=== PATIENT | male | born 1955 | race Caucasian/White ===

== ENCOUNTER 2019-10-09 11:10 | Outpatient (CLI) | payer MEDICARE ==
[2019-10-09] MEDS ORDERED: ATOR10TA9 PO (12:03)
[2019-10-09] MEDS ORDERED: LISI-170 PO (12:03)
[2019-10-09] MEDS ORDERED: CARV3.1212 PO (12:03)
[2019-10-09] MEDS ORDERED: ASPI-496 PO (12:09)
[2019-10-09] MEDS ORDERED: MULT-658 PO (12:10)
[2019-10-09] MEDS ORDERED: BEET ROOT PO (12:10)
[2019-10-09 12:40] LABS: BASOPHILS # (AUTO) 0.03 x10^3/uL (0-0.1); BASOPHILS % (AUTO) 0 % (0-1); EOSINOPHILS # (AUTO) 0.15 x10^3/uL (0-0.4); EOSINOPHILS % (AUTO) 2 % (1-7); LYMPHOCYTES # (AUTO) 2.37 x10^3/uL (1-3.4); LYMPHOCYTES % (AUTO) 28 % (22-44); MD NO; MEAN CORPUSCULAR HEMOGLOBIN 32.4 pg (27.5-34.5); MONOCYTES # (AUTO) 0.57 x10^3/uL (0.2-0.8); MONOCYTES % (AUTO) 7 % (2-9); NEUTROPHILS # (AUTO) 5.39 x10^3/uL (1.8-6.8); NEUTROPHILS % (AUTO) 63 % (42-75); PLATELET COUNT 226 x10^3/uL (130-400); RED BLOOD COUNT 4.46 x10^6/uL (4.38-5.82); RED CELL DISTRIBUTION WIDTH 12.9 % (9.4-14.8)
[2019-10-09 12:52] LABS: ALANINE AMINOTRANSFERASE 23 U/L (12-78); ALBUMIN 3.7 g/dL (3.4-5.0); ANION GAP 6 mmol/L (5-15); CALCIUM 9.2 mg/dL (8.5-10.1); CHLORIDE 106 mmol/L (98-107); CREATININE 1.26 mg/dL (0.7-1.3)
[2019-10-09 12:54] LABS: INTERNATIONAL NORMALIZED RATIO 1.01 (0.93-1.1); PROTHROMBIN TIME 10.7 Seconds (9.6-11.5)
[2019-10-09 12:55] LABS: ALKALINE PHOSPHATASE 69 U/L (45-117); BILIRUBIN,TOTAL 0.7 mg/dL (0.2-1.0)
[2019-12-06] MEDS ORDERED: ROSU20TA2 PO (09:38)
[2019-12-06] MEDS ORDERED: ISOSORBIDE PO (09:38)
[2019-12-06] MEDS ORDERED: METF500T17 PO (09:38)
[2019-12-06] MEDS ORDERED: OMEP-110 PO (09:38)
[2019-12-06] MEDS ORDERED: FURO20TA3 PO (09:40)
[2019-12-07] MEDS ORDERED: OXYC5TAB2 PO (11:04)
[2019-12-07] MEDS ORDERED: TRAM50TA2 PO (11:08)
[2019-12-07] MEDS ORDERED: MELO7.5T31 PO (11:09)
== END 2019-10-09 23:59 | disposition home or self-care (01) ==
LOC: STAR 11:10
PROVIDERS: ATTEND Orthopaedic Surgery
DX: Z01.818 Encounter for other preprocedural examination (principal); M16.11 Unilateral primary osteoarthritis, right hip; M25.551 Pain in right hip
CPT/HCPCS: 36415; 80053; 83036; 85025; 85610; 85730; 87081; 93005

== ENCOUNTER → 2019-12-01 | Outpatient (CLI) | payer MEDICARE ==
[~2019-12-01] MED LIST: ASPI-496 PO; ATOR10TA9 PO; BEET ROOT PO; CARV3.1212 PO; FURO20TA3 PO; ISOSORBIDE PO; LISI-170 PO; MELO7.5T31 PO; METF500T17 PO; MULT-658 PO; OMEP-110 PO; OXYC5TAB2 PO; ROSU20TA2 PO; TRAM50TA2 PO
== END | disposition home or self-care (01) ==
LOC: STAR 11:41
PROVIDERS: ATTEND Anesthesiology
DX: Z01.812 Encounter for preprocedural laboratory examination (principal); Z20.828 Contact with and (suspected) exposure to other viral communicable diseases
CPT/HCPCS: 36415; 87635